=== PATIENT | female | born 1965 | race Caucasian/White ===

== ENCOUNTER → 2018-07-20 | Day surgery (SDC) | payer BC ==
[~2018-07-20] MED LIST: Lactated Ringers 1,000 ML IV SCH; Propofol 200 MG/20 ML SDV IV ONE
--- NOTE | 2018-07-20 10:39 | OR ---
DATE OF OPERATION: 07/20/2018 PREOPERATIVE DIAGNOSIS: FAMILY HISTORY OF COLON CANCER. POSTOPERATIVE DIAGNOSIS: FAMILY HISTORY OF COLON CANCER. SURGEON: Colten Reddy MD PROCEDURE: FULL-LENGTH COLONOSCOPY WITH BIOPSY X1. ANESTHESIA: ASSEMBLER MUSICAL INSTRUMENTS. COMPLICATIONS: None. SPECIMEN: Sigmoid biopsy x1. FINDINGS: 1. Full-length colonoscopy. 2. Focal colitis, likely scope trauma. RECOMMENDATIONS: Followup colonoscopy every 5 years. INDICATIONS: The patient has a family history of colon cancer in her mother. She has never had a prior endoscopy. DESCRIPTION OF PROCEDURE: The patient was prepped and draped, placed in the left lateral decubitus position. A lubricated Olympus colonoscope was inserted and easily advanced to the cecum. We were able to directly visualize the ileocecal valve and appendiceal orifice. The bowel prep was excellent. Upon withdrawal of the scope throughout the entire length of the right transverse and descending colon, no abnormalities were seen. The sigmoid colon showed no signs of any polyps, mass, ulceration, or bleeding sites. No signs of diverticula. In the mid sigmoid around 45 cm, there was a focal area of inflammation, I believe this was scope-induced from advancing, but we did do a biopsy of the area for thoroughness. The rest of the sigmoid and rectosigmoid area were benign. The rectal vault was unremarkable. Retroflexion of the scope in the rectum showed no anal lesions. Air was then suctioned, scope removed without complication. TRINH /[id number]
== END ==
LOC: CC.SDS 08:35
PROVIDERS: ATTEND Family Medicine
DX: Z12.11 Encounter for screening for malignant neoplasm of colon (principal); E03.9 Hypothyroidism, unspecified; D50.9 Iron deficiency anemia, unspecified; D51.9 Vitamin B12 deficiency anemia, unspecified; Z79.890 Hormone replacement therapy; Z80.0 Family history of malignant neoplasm of digestive organs
CPT/HCPCS: 45380; J2704; J7120

== ENCOUNTER 2024-07-05 07:49 | Day surgery (SDC) | payer BC ==
[2024-07-05] MEDS ORDERED: Ketamine 200 MG/20 ML MDV ONE (08:10)
[2024-07-05] MEDS ORDERED: Propofol 200 MG/20 ML SDV ONE (08:10)
[2024-07-05] MEDS: Lactated Ringers 1,000 ML IV SCH (08:10)
[2024-07-05] MEDS ORDERED: fentaNYL 50 MCG/ML SDV ONE (08:10)
== END 2024-07-05 09:21 | disposition home or self-care (01) ==
LOC: CC.SDS 07:49
PROVIDERS: ATTEND Family Medicine
DX: Z12.11 Encounter for screening for malignant neoplasm of colon (principal); Z80.0 Family history of malignant neoplasm of digestive organs; E03.9 Hypothyroidism, unspecified; Z79.890 Hormone replacement therapy; Z79.899 Other long term (current) drug therapy
CPT/HCPCS: J2704; J3010; J3490; J7120